=== PATIENT | female | born 1960 | race African-American/Black ===

== ENCOUNTER 2016-11-27 02:12 | Inpatient (IN) | payer OTHER, MEDICAID ==
[~2016-11-27] VITALS: Ht 154.9 cm; Wt 112.0 kg
[~2016-11-27 02:12] MED LIST: DILT360C39 PO; HYDR-523 PO; Isosorbide Mononitrate PO; LIP40 PO; LOSA100T3 PO; OMEP20TA15 PO; [UNRECOGNIZED DRUG - CODE] PO
[2016-11-27] MEDS ORDERED: ONDANSETRON HCL 4MG/2ML VIAL IV STA (03:50)
[2016-11-27] MEDS ORDERED: MORPHINE SULFATE 4 MG/ML CPJ (NOT FOR IM USE) IV STA (03:50)
[2016-11-27 04:10] LABS: BASOPHILS % 0.7 % (0.0-2.0); EOSINOPHILS % 0.9 % (0.0-5.0); HEMATOCRIT. 31.3 % (36.0-48.0); HEMOGLOBIN. 9.7 g/dL (12.0-16.0); LYMPHOCYTES % 18.1 % (20.0-50.0); MEAN CORPUSCULAR HEMOGLOBIN 21.2 pg (28.0-32.0); MEAN CORPUSCULAR VOLUME 68.1 fL (81.0-99.0); MEAN PLATELET VOLUME 9.6 fl (7.4-10.4); MONOCYTES % 11.2 % (2.0-8.0); NEUTROPHILS % 69.1 % (40.0-76.0); PLATELET 207 x1000/uL (130-400); RED CELL DISTRIBUTION WIDTH 16.8 % (11.6-14.6)
[2016-11-27 04:15] LABS: INR 1.1; PARTIAL THROMBOPLASTIN TIME 27.1 sec (24.0-34.0)
[2016-11-27 04:19] LABS: CARBON DIOXIDE 24 mEq/L (21-32); CHLORIDE 112 mEq/L (98-107)
[2016-11-27] MEDS ORDERED: FUROSEMIDE 40MG/4ML VIAL IV STA (05:06)
[2016-11-27] MEDS ORDERED: ASPIRIN 81MG TABLET PO STA (05:06)
[2016-11-27] MEDS ORDERED: NITROGLYCERIN OINT 1GM/INCH UDPKT TD STA (05:06)
[2016-11-27 05:41] LABS: TROPONIN I 0.02 ng/mL (0.00-0.04)
[2016-11-27] MEDS ORDERED: ACETAMINOPHEN 325MG TABLET PO PRN (07:15)
[2016-11-27] MEDS ORDERED: DIPHENHYDRAMINE 50MG/ML VIAL IV PRN (07:15)
[2016-11-27] MEDS ORDERED: IPRATROPIUM/ALBUTEROL 0.5-3(2.5)MG/3ML NEB INH PRN (07:15)
[2016-11-27] MEDS ORDERED: DOCUSATE SODIUM 100MG CAPSULE PO PRN (07:15)
[2016-11-27] MEDS ORDERED: LORAZEPAM 0.5MG TABLET PO PRN (07:15)
[2016-11-27] MEDS ORDERED: NA PHOS,M-B/NA PHOS,DI-BA ENEMA 118ML PR PRN (07:15)
[2016-11-27] MEDS ORDERED: GUAIFENESIN 200MG/10ML SUGAR FREE UDC PO PRN (07:15)
[2016-11-27] MEDS ORDERED: ONDANSETRON HCL 4MG/2ML VIAL IV PRN (07:15)
[2016-11-27] MEDS ORDERED: MAGNESIUM/ALUMINUM HYDROXIDE/SIMETHICONE 30ML UDC PO PRN (07:15)
[2016-11-27] MEDS ORDERED: SODIUM CHLORIDE 0.45% 1,000 ML IV SCH (09:45)
[2016-11-27] MEDS: FUROSEMIDE 40MG/4ML VIAL IV SCH (13:56)
[2016-11-27] MEDS: SODIUM CHLORIDE 0.9% INJ 3ML FLUSH IVF SCH ×2 (13:57→21:12)
[2016-11-27] MEDS: CEFTRIAXONE 1 G PREMIX 50 ML IV SCH (13:57)
[2016-11-27] MEDS: HYDROCODONE/ACETAMINOPHEN 5/325MG TABLET PO PRN ×2 (16:04→21:11)
[2016-11-27 16:16] LABS: HDL CHOLESTEROL 48 mg/dL (40-59); LDL CHOLESTEROL 94 mg/dL (5-100); TROPONIN I < 0.02 ng/mL (0.00-0.04)
[2016-11-27 16:20] LABS: CREATINE KINASE 2509 IU/L (26-192)
[2016-11-27] MEDS: CLONIDINE 0.1MG TABLET PO PRN (16:52)
[2016-11-27] MEDS: CLOPIDOGREL 75MG TABLET PO SCH (21:10)
[2016-11-27 21:17] LABS: T4 FREE 1.25 ng/dL (0.76-1.46)
[2016-11-28 00:26] LABS: CREATINE KINASE MB FRACTION 2.6 ng/mL (0.5-3.6); TROPONIN I < 0.02 ng/mL (0.00-0.04)
[2016-11-28 00:34] LABS: CREATINE KINASE 1909 IU/L (26-192)
[2016-11-28] MEDS: HYDROCODONE/ACETAMINOPHEN 5/325MG TABLET PO PRN ×4 (01:12→20:42)
[2016-11-28] MEDS: CLONIDINE 0.1MG TABLET PO PRN (04:45)
[2016-11-28] MEDS: SODIUM CHLORIDE 0.9% INJ 3ML FLUSH IVF SCH ×3 (05:23→21:44)
[2016-11-28 07:11] LABS: BASOPHILS % 0.6 % (0.0-2.0); EOSINOPHILS % 1.2 % (0.0-5.0); HEMATOCRIT. 30.6 % (36.0-48.0); HEMOGLOBIN. 9.7 g/dL (12.0-16.0); LYMPHOCYTES % 20.7 % (20.0-50.0); MEAN CORPUSCULAR HEMOGLOBIN 21.7 pg (28.0-32.0); MEAN CORPUSCULAR VOLUME 68.3 fL (81.0-99.0); MONOCYTES % 10.2 % (2.0-8.0); NEUTROPHILS % 67.3 % (40.0-76.0); PLATELET 199 x1000/uL (130-400); RED BLOOD CELL COUNT 4.47 mill/uL (4.2-5.4); RED CELL DISTRIBUTION WIDTH 16.8 % (11.6-14.6)
[2016-11-28] MEDS ORDERED: DILTIAZEM HCL 360MG CAPSULE SA 24HR PO SCH (07:30)
[2016-11-28] MEDS ORDERED: DEXTROSE 50% WATER 50ML SYRINGE IV PRN (07:30)
[2016-11-28 07:34] LABS: CARBON DIOXIDE 24 mEq/L (21-32); CHLORIDE 106 mEq/L (98-107); CREATINE KINASE MB FRACTION 2.5 ng/mL (0.5-3.6); HDL CHOLESTEROL 43 mg/dL (40-59); LDL CHOLESTEROL 93 mg/dL (5-100); PHOSPHORUS 3.3 mg/dL (2.5-4.9)
[2016-11-28] MEDS: BLOOD SUGAR DIAGNOSTIC STRIP TEST SCH ×4 (08:08→21:46)
[2016-11-28] MEDS: INSULIN LISPRO 100 UNITS/ML SUBCUT SCH ×4 (08:09→21:46)
[2016-11-28] MEDS: CLOPIDOGREL 75MG TABLET PO SCH (08:45)
[2016-11-28] MEDS: LOSARTAN POTASSIUM 100 MG TABLET PO SCH (08:45)
[2016-11-28] MEDS: ASPIRIN 81MG TABLET PO SCH (08:47)
[2016-11-28] MEDS: FUROSEMIDE 40MG/4ML VIAL IV SCH (08:47)
[2016-11-28] MEDS: HYDRALAZINE HCL 50MG TABLET PO SCH ×2 (08:57→21:43)
[2016-11-28] MEDS: NIFEDIPINE XL 60MG TAB PO SCH ×2 (10:32→21:00)
[2016-11-28] MEDS: LABETALOL HCL 300MG TABLET PO SCH ×3 (10:32→22:51)
[2016-11-28] MEDS: CEFTRIAXONE 1 G PREMIX 50 ML IV SCH (10:35)
[2016-11-28] MEDS ORDERED: NPH,100V11 SQ ×2 (13:18→13:19)
[2016-11-28] MEDS ORDERED: INSU100V28 IJ ×2 (13:18→13:19)
[2016-11-28] MEDS ORDERED: BRIM15DR2 RIGHTEYE (16:41)
[2016-11-28] MEDS ORDERED: DORZ10DR9 EACHEYE (16:42)
[2016-11-28] MEDS ORDERED: ASOU RIGHTEYE (16:43)
[2016-11-28] MEDS ORDERED: LATA2.5D2 EACHEYE (16:47)
[2016-11-28] MEDS ORDERED: VIGAMX RIGHTEYE (16:47)
[2016-11-28] MEDS ORDERED: MEDICATION NOT ON FORMULARY EA (Brimonidine Tartrate (Alphagan P) 1 DROP) RIGHTEYE PRN (17:30)
[2016-11-28] MEDS ORDERED: ATRO10DR RIGHTEYE (17:35)
[2016-11-28] MEDS ORDERED: BRIMONIDINE 0.2% OPHTH DROPS 5ML RIGHTEYE PRN (18:00)
[2016-11-28] MEDS ORDERED: MEDICATION NOT ON FORMULARY EA (Moxifloxacin Hcl (Vigamox) 1 DROP) RIGHTEYE SCH (21:00)
[2016-11-28] MEDS ORDERED: INSULIN NPH (HUMULIN-N) 100 UNITS/ML 3ML VIAL SUBCUT SCH (21:00)
[2016-11-28] MEDS ORDERED: INSULIN REGULAR (HUMULIN R) 300UNITS/3ML SUBCUT SCH (21:00)
[2016-11-28] MEDS ORDERED: ATORVASTATIN CALCIUM 40MG TABLET PO SCH (21:00)
[2016-11-28] MEDS: MOXIFLOXACIN 0.5% RIGHTEYE SCH (21:44)
[2016-11-29] MEDS: HYDROCODONE/ACETAMINOPHEN 5/325MG TABLET PO PRN (02:44)
[2016-11-29] MEDS: LABETALOL HCL 300MG TABLET PO SCH (06:00)
[2016-11-29] MEDS: BLOOD SUGAR DIAGNOSTIC STRIP TEST SCH ×2 (06:02→11:49)
[2016-11-29] MEDS: SODIUM CHLORIDE 0.9% INJ 3ML FLUSH IVF SCH (06:10)
[2016-11-29] MEDS: INSULIN LISPRO 100 UNITS/ML SUBCUT SCH ×2 (06:23→12:34)
[2016-11-29 06:30] LABS: PHOSPHORUS 3.7 mg/dL (2.5-4.9)
[2016-11-29 06:40] LABS: BASOPHILS % 0.3 % (0.0-2.0); EOSINOPHILS % 0.9 % (0.0-5.0); HEMATOCRIT. 29.9 % (36.0-48.0); HEMOGLOBIN. 9.4 g/dL (12.0-16.0); LYMPHOCYTES % 20.2 % (20.0-50.0); MEAN CORPUSCULAR HEMOGLOBIN 21.5 pg (28.0-32.0); MEAN CORPUSCULAR VOLUME 68.1 fL (81.0-99.0); MEAN PLATELET VOLUME 10.1 fl (7.4-10.4); MONOCYTES % 9.4 % (2.0-8.0); NEUTROPHILS % 69.2 % (40.0-76.0); PLATELET 198 x1000/uL (130-400); RED BLOOD CELL COUNT 4.39 mill/uL (4.2-5.4); RED CELL DISTRIBUTION WIDTH 16.4 % (11.6-14.6)
[2016-11-29] MEDS ORDERED: INSULIN NPH (HUMULIN-N) 100 UNITS/ML 3ML VIAL SUBCUT SCH ×2 (06:45→17:00)
[2016-11-29] MEDS ORDERED: INSULIN REGULAR (HUMULIN R) 300UNITS/3ML SUBCUT SCH ×2 (06:45→17:00)
[2016-11-29 08:08] LABS: PLATELET ESTIMATE NORMAL
[2016-11-29] MEDS ORDERED: SODIUM CHLORIDE 0.9% 1,000 ML IV SCH (08:30)
[2016-11-29] MEDS ORDERED: DORZOLAM/TIMOLOL 2.23/0.68% OPHTH DROPS 10ML EACHEYE SCH (09:00)
[2016-11-29] MEDS: CLOPIDOGREL 75MG TABLET PO SCH (09:00)
[2016-11-29] MEDS ORDERED: NACL 0.9% RIGHTEYE SCH (09:00)
[2016-11-29] MEDS: ASPIRIN 81MG TABLET PO SCH (09:00)
[2016-11-29] MEDS ORDERED: [UNRECOGNIZED DRUG - OTHER] RIGHTEYE SCH (09:00)
[2016-11-29] MEDS ORDERED: ATROPINE SULFATE RIGHTEYE SCH (09:00)
[2016-11-29] MEDS ORDERED: ATROPINE SULFATE 1% OPHTH 2ML RIGHTEYE SCH (09:00)
[2016-11-29] MEDS ORDERED: LATANOPROST 0.005% OPHTH DROPS 2.5ML EACHEYE SCH (09:00)
[2016-11-29] MEDS: MOXIFLOXACIN 0.5% RIGHTEYE SCH (09:12)
[2016-11-29] MEDS: HYDRALAZINE HCL 50MG TABLET PO SCH (09:16)
[2016-11-29] MEDS: LOSARTAN POTASSIUM 100 MG TABLET PO SCH (09:16)
[2016-11-29] MEDS: NIFEDIPINE XL 60MG TAB PO SCH (09:16)
[2016-11-29] MEDS ORDERED: INSULIN NPH (HUMULIN-N) 100 UNITS/ML 3ML VIAL SUBCUT NR (09:30)
[2016-11-29 13:35] VITALS: BP 128/72
== END 2016-11-29 14:19 | disposition home or self-care (01) | DRG 871 ==
LOC: ER 02:18 → 5WST 06:03 → EDBEDREQ 06:11 → ENRESERV 07:05
PROVIDERS: ADMIT Internal Medicine; ATTEND Family Medicine
DX: A41.9 Sepsis, unspecified organism (principal); E43 Unspecified severe protein-calorie malnutrition; I50.31 Acute diastolic (congestive) heart failure; L03.90 Cellulitis, unspecified; I13.0 Hypertensive heart and chronic kidney disease with heart failure and stage 1 through stage 4 chronic kidney disease, or unspecified chronic kidney disease; N17.9 Acute kidney failure, unspecified; Z68.42 Body mass index [BMI] 45.0-49.9, adult; E11.22 Type 2 diabetes mellitus with diabetic chronic kidney disease; E11.51 Type 2 diabetes mellitus with diabetic peripheral angiopathy without gangrene; E11.40 Type 2 diabetes mellitus with diabetic neuropathy, unspecified; E78.00 Pure hypercholesterolemia, unspecified; E78.5 Hyperlipidemia, unspecified; N18.3 Chronic kidney disease, stage 3 (moderate); I25.10 Atherosclerotic heart disease of native coronary artery without angina pectoris; D63.8 Anemia in other chronic diseases classified elsewhere; E66.9 Obesity, unspecified; J44.9 Chronic obstructive pulmonary disease, unspecified; Z86.718 Personal history of other venous thrombosis and embolism; Z89.611 Acquired absence of right leg above knee; Z95.820 Peripheral vascular angioplasty status with implants and grafts
CPT/HCPCS: 36415; 71010; 76770; 80048; 80053; 80061; 82550; 82553; 82962; 83036; 83735; 83880; 84100; 84439; 84443; 84484; 85025; 85379; 85610; 85730; 87040; 93005; 93306; 93923; 93970; 96374; 96375; 99285; J0696; J1815; J1940; J2270; J2405; J7030

== ENCOUNTER 2017-02-03 15:01 | Emergency (ER) | payer OTHER, MEDICAID ==
[~2017-02-03] VITALS: Ht 165.1 cm; Wt 94.0 kg
[~2017-02-03 15:01] MED LIST changes: +ATRO10DR RIGHTEYE; +BRIM15DR2 RIGHTEYE; +DORZ10DR9 EACHEYE; +INSU100V28 IJ; +LATA2.5D2 EACHEYE; +NPH,100V11 SQ; +VIGAMX RIGHTEYE
[2017-02-03 15:44] LABS: BASOPHILS % 0.9 % (0.0-2.0); EOSINOPHILS % 1.3 % (0.0-5.0); HEMATOCRIT. 32.9 % (36.0-48.0); HEMOGLOBIN. 10.4 g/dL (12.0-16.0); LYMPHOCYTES % 16.8 % (20.0-50.0); MEAN CORPUSCULAR HEMOGLOBIN 21.7 pg (28.0-32.0); MEAN CORPUSCULAR VOLUME 68.7 fL (81.0-99.0); MEAN PLATELET VOLUME 9.7 fl (7.4-10.4); MONOCYTES % 9.1 % (2.0-8.0); NEUTROPHILS % 71.9 % (40.0-76.0); PLATELET 173 x1000/uL (130-400); RED BLOOD CELL COUNT 4.79 mill/uL (4.2-5.4); RED CELL DISTRIBUTION WIDTH 16.4 % (11.6-14.6)
[2017-02-03 16:06] LABS: CARBON DIOXIDE 24 mEq/L (21-32); CHLORIDE 109 mEq/L (98-107); ETHANOL BLOOD < 10 mg/dL; TROPONIN I < 0.02 ng/mL (0.00-0.04)
[2017-02-03 17:15] LABS: CLARITY URINE CLEAR (CLEAR); COLOR URINE YELLOW (YELLOW); GLUCOSE URINE NEGATIVE (NEGATIVE); KETONES URINE NEGATIVE (NEGATIVE); LEUKOCYTE ESTERASE URINE NEGATIVE (NEGATIVE); NITRITE URINE NEGATIVE (NEGATIVE); OCCULT BLOOD URINE TRACE (NEGATIVE); PROTEIN URINE 3+ (NEGATIVE); SPECIFIC GRAVITY URINE 1.014 (1.005-1.030); UROBILINOGEN URINE 0.2 E.U./dL (0.2-1.0)
[2017-02-03 17:27] LABS: PLATELET ESTIMATE NORMAL
[2017-02-03 17:30] LABS: *AMPHETAMINES SCREEN URINE NEGATIVE (NEGATIVE); *BARBITURATES SCREEN URINE NEGATIVE (NEGATIVE); *BENZODIAZEPINES SCREEN URINE NEGATIVE (NEGATIVE); *COCAINE SCREEN URINE NEGATIVE (NEGATIVE); CANNABINOID URINE SCREEN NEGATIVE (NEGATIVE); METHADONE URINE SCREEN NEGATIVE (NEGATIVE); OPIATES URINE SCREEN PRESUMTIVE POSITIVE (NEGATIVE); PHENCYCLIDINE URINE SCREEN NEGATIVE (NEGATIVE)
[2017-02-03 19:09] VITALS: BP 156/67
== END 2017-02-03 19:14 | disposition home or self-care (01) ==
LOC: ER 15:09
DX: E11.649 Type 2 diabetes mellitus with hypoglycemia without coma (principal); Z79.4 Long term (current) use of insulin; I11.9 Hypertensive heart disease without heart failure; E78.00 Pure hypercholesterolemia, unspecified; Z89.611 Acquired absence of right leg above knee
CPT/HCPCS: 36415; 80053; 80305; 81001; 82962; 84484; 85025; 93005; 99285; G0482

== ENCOUNTER 2017-06-22 08:06 | Inpatient (IN) | payer OTHER, MEDICAID ==
[~2017-06-22] VITALS: Ht 154.9 cm; Wt 104.3 kg
[2017-06-22 09:05] LABS: BASOPHILS % 0.7 % (0.0-2.0); EOSINOPHILS % 0.9 % (0.0-5.0); HEMATOCRIT. 29.5 % (36.0-48.0); HEMOGLOBIN. 9.2 g/dL (12.0-16.0); LYMPHOCYTES % 13.3 % (20.0-50.0); MEAN CORPUSCULAR HEMOGLOBIN 21.3 pg (28.0-32.0); MEAN CORPUSCULAR VOLUME 68.2 fL (81.0-99.0); MEAN PLATELET VOLUME 9.7 fl (7.4-10.4); MONOCYTES % 8.8 % (2.0-8.0); NEUTROPHILS % 76.3 % (40.0-76.0); PLATELET 285 x1000/uL (130-400); RED BLOOD CELL COUNT 4.32 mill/uL (4.2-5.4); RED CELL DISTRIBUTION WIDTH 15.9 % (11.6-14.6)
[2017-06-22 09:10] LABS: INR 1.1; PROTHROMBIN TIME 11.4 sec (9.4-11.6)
[2017-06-22 09:25] LABS: CARBON DIOXIDE 23 mEq/L (21-32); CHLORIDE 104 mEq/L (98-107)
[2017-06-22 09:45] LABS: TROPONIN I < 0.02 ng/mL (0.00-0.04)
[2017-06-22] MEDS ORDERED: FUROSEMIDE 20MG/2ML VIAL IVP ONE (10:15)
[2017-06-22] MEDS ORDERED: ENALAPRIL 2.5MG/2ML VIAL 2ML IV ONE (10:15)
[2017-06-22 10:58] LABS: PLATELET ESTIMATE NORMAL
[2017-06-22] MEDS ORDERED: ONDANSETRON HCL 4MG/2ML VIAL IV ONE (12:15)
[2017-06-22 17:24] VITALS: BP 173/88
[2017-06-22] MEDS ORDERED: DEXTROSE 50% WATER 50ML SYRINGE IV PRN (19:00)
[2017-06-22] MEDS ORDERED: FUROSEMIDE 100MG/10ML VIAL IVP NR (19:34)
[2017-06-22 20:00] VITALS: BP 186/55
[2017-06-22] MEDS: ATORVASTATIN CALCIUM 40MG TABLET PO SCH (20:59)
[2017-06-22] MEDS ORDERED: MAGNESIUM/ALUMINUM HYDROXIDE/SIMETHICONE 30ML UDC PO PRN (21:00)
[2017-06-22] MEDS ORDERED: ONDANSETRON HCL 4MG/2ML VIAL IV PRN (21:00)
[2017-06-22] MEDS ORDERED: IPRATROPIUM/ALBUTEROL 0.5-3(2.5)MG/3ML NEB INH PRN (21:00)
[2017-06-22] MEDS ORDERED: GUAIFENESIN 200MG/10ML SUGAR FREE UDC PO PRN (21:00)
[2017-06-22] MEDS: HYDROCODONE/ACETAMINOPHEN 5/325MG TABLET PO PRN (21:00)
[2017-06-22] MEDS ORDERED: ACETAMINOPHEN 325MG TABLET PO PRN (21:00)
[2017-06-22] MEDS ORDERED: DIPHENHYDRAMINE 50MG/ML VIAL IV PRN (21:00)
[2017-06-22] MEDS ORDERED: HYDRALAZINE 20MG/ML VIAL IV PRN (21:00)
[2017-06-22] MEDS: INSULIN LISPRO 100 UNITS/ML SUBCUT SCH (21:01)
[2017-06-22] MEDS: BLOOD SUGAR DIAGNOSTIC STRIP TEST SCH (21:01)
[2017-06-22] MEDS: CLONIDINE 0.2MG TABLET PO PRN (21:23)
[2017-06-22] MEDS: SODIUM CHLORIDE 0.9% INJ 3ML FLUSH IVF SCH (21:24)
[2017-06-22] MEDS: ENOXAPARIN 40MG/0.4ML SYR SUBCUT SCH (23:20)
[2017-06-22] MEDS: LATANOPROST 0.005% OPHTH DROPS 2.5ML EACHEYE SCH (23:20)
[2017-06-22] MEDS: LABETALOL HCL 300MG TABLET PO SCH (23:21)
[2017-06-22 23:35] VITALS: BP 147/41
[2017-06-23 04:00] VITALS: BP 150/43
[2017-06-23 06:17] LABS: BASOPHILS % 0.8 % (0.0-2.0); EOSINOPHILS % 1.5 % (0.0-5.0); HEMATOCRIT. 27.4 % (36.0-48.0); HEMOGLOBIN. 8.4 g/dL (12.0-16.0); LYMPHOCYTES % 21.4 % (20.0-50.0); MEAN CORPUSCULAR HEMOGLOBIN 20.9 pg (28.0-32.0); MEAN CORPUSCULAR VOLUME 68.5 fL (81.0-99.0); MEAN PLATELET VOLUME 9.4 fl (7.4-10.4); MONOCYTES % 12.9 % (2.0-8.0); NEUTROPHILS % 63.4 % (40.0-76.0); PLATELET 254 x1000/uL (130-400); RED CELL DISTRIBUTION WIDTH 15.7 % (11.6-14.6)
[2017-06-23] MEDS: BLOOD SUGAR DIAGNOSTIC STRIP TEST SCH ×4 (06:25→21:00)
[2017-06-23] MEDS: OMEPRAZOLE 20MG CAPSULE EXTENDED RELEASE PO SCH (06:32)
[2017-06-23] MEDS: CLONIDINE 0.2MG TABLET PO PRN (06:33)
[2017-06-23] MEDS: SODIUM CHLORIDE 0.9% INJ 3ML FLUSH IVF SCH ×3 (06:33→21:20)
[2017-06-23] MEDS: LABETALOL HCL 300MG TABLET PO SCH ×3 (06:33→21:03)
[2017-06-23] MEDS: INSULIN LISPRO 100 UNITS/ML SUBCUT SCH ×4 (06:36→21:18)
[2017-06-23 06:58] LABS: CARBON DIOXIDE 25 mEq/L (21-32); CHLORIDE 104 mEq/L (98-107); TROPONIN I < 0.02 ng/mL (0.00-0.04)
[2017-06-23 08:00] VITALS: BP 150/100
[2017-06-23] MEDS ORDERED: DORZOLAM/TIMOLOL 2.23/0.68% OPHTH DROPS 10ML EACHEYE SCH ×2 (09:00)
[2017-06-23] MEDS: DILTIAZEM HCL 360MG CAPSULE SA 24HR PO SCH (09:30)
[2017-06-23] MEDS: LOSARTAN POTASSIUM 100 MG TABLET PO SCH (09:30)
[2017-06-23] MEDS: INSULIN NPH (HUMULIN-N) 100 UNITS/ML 3ML VIAL SUBCUT SCH ×2 (09:32→17:32)
[2017-06-23 10:23] LABS: BG BASE EXCESS -3.1 mmol/L (-2.0-2.0); BG CARBOXYHEMOGLOBIN 0.8 % (0.5-1.5); BG DEOXYHEMOGLOBIN 3.4 % (0.0-5.0); BG FRACTION INSPIRED OXYGEN 21; BG HCO3 ACT 21.5 mmol/L (22.0-26.0); BG METHEMOGLOBIN 0.3 % (0.0-1.5); BG OXYGEN SATURATION 96.6 % (92.0-98.5); BG OXYHEMOGLOBIN 95.5 % (94.0-97.0); BG PCO2 36.4 mmHg (35.0-45.0); BG PH 7.389 (7.350-7.450); BG PO2 93.7 mmHg (75.0-100.0); BG SAMPLE SITE RIGHT RADIAL; BG TOTAL HEMOGLOBIN 8.6 g/dL (12.0-18.0); BG VENT MODE ROOM AIR
[2017-06-23 12:00] VITALS: BP 176/48
[2017-06-23 16:00] VITALS: BP 117/74
[2017-06-23 16:15] LABS: BASOPHILS % 0.8 % (0.0-2.0); EOSINOPHILS % 1.4 % (0.0-5.0); HEMATOCRIT. 26.4 % (36.0-48.0); HEMOGLOBIN. 8.3 g/dL (12.0-16.0); LYMPHOCYTES % 21.7 % (20.0-50.0); MEAN CORPUSCULAR HEMOGLOBIN 21.6 pg (28.0-32.0); MEAN CORPUSCULAR VOLUME 68.7 fL (81.0-99.0); MEAN PLATELET VOLUME 9.8 fl (7.4-10.4); MONOCYTES % 9.9 % (2.0-8.0); NEUTROPHILS % 66.2 % (40.0-76.0); PLATELET 250 x1000/uL (130-400); RED BLOOD CELL COUNT 3.85 mill/uL (4.2-5.4)
[2017-06-23 16:20] LABS: CHLORIDE 101 mEq/L (98-107)
[2017-06-23 16:30] LABS: CARBON DIOXIDE 25 mEq/L (21-32)
[2017-06-23 20:00] VITALS: BP 120/67
[2017-06-23] MEDS: ATORVASTATIN CALCIUM 40MG TABLET PO SCH (21:02)
[2017-06-23] MEDS: LATANOPROST 0.005% OPHTH DROPS 2.5ML EACHEYE SCH (21:04)
[2017-06-23] MEDS: ENOXAPARIN 40MG/0.4ML SYR SUBCUT SCH (21:04)
[2017-06-23] MEDS: HYDROCODONE/ACETAMINOPHEN 5/325MG TABLET PO PRN (21:05)
[2017-06-24] VITALS: BP 149/41
[2017-06-24 04:00] VITALS: BP 168/43
[2017-06-24] MEDS: LABETALOL HCL 300MG TABLET PO SCH ×3 (05:54→21:36)
[2017-06-24] MEDS: SODIUM CHLORIDE 0.9% INJ 3ML FLUSH IVF SCH ×3 (05:55→21:36)
[2017-06-24] MEDS: BLOOD SUGAR DIAGNOSTIC STRIP TEST SCH ×4 (06:04→20:39)
[2017-06-24] MEDS: INSULIN LISPRO 100 UNITS/ML SUBCUT SCH ×4 (06:04→21:02)
[2017-06-24] MEDS: OMEPRAZOLE 20MG CAPSULE EXTENDED RELEASE PO SCH (06:11)
[2017-06-24 07:20] LABS: BASOPHILS % 0.5 % (0.0-2.0); EOSINOPHILS % 2.1 % (0.0-5.0); HEMOGLOBIN. 8.8 g/dL (12.0-16.0); LYMPHOCYTES % 27.6 % (20.0-50.0); MEAN CORPUSCULAR HEMOGLOBIN 21.5 pg (28.0-32.0); MEAN PLATELET VOLUME 9.7 fl (7.4-10.4); MONOCYTES % 12.9 % (2.0-8.0); NEUTROPHILS % 56.9 % (40.0-76.0); PLATELET 264 x1000/uL (130-400); RED BLOOD CELL COUNT 4.11 mill/uL (4.2-5.4); RED CELL DISTRIBUTION WIDTH 15.9 % (11.6-14.6)
[2017-06-24 08:00] VITALS: BP 153/44
[2017-06-24 08:07] LABS: CHLORIDE 103 mEq/L (98-107)
[2017-06-24 09:23] LABS: CARBON DIOXIDE 23 mEq/L (21-32); HDL CHOLESTEROL 33 mg/dL (40-59); LDL CHOLESTEROL 82 mg/dL (5-100); PHOSPHORUS 4.3 mg/dL (2.5-4.9)
[2017-06-24] MEDS: DILTIAZEM HCL 360MG CAPSULE SA 24HR PO SCH (09:41)
[2017-06-24] MEDS: LOSARTAN POTASSIUM 100 MG TABLET PO SCH (09:41)
[2017-06-24] MEDS: INSULIN NPH (HUMULIN-N) 100 UNITS/ML 3ML VIAL SUBCUT SCH ×2 (09:46→18:41)
[2017-06-24 12:00] VITALS: BP 100/50
[2017-06-24] MEDS ORDERED: POTASSIUM CHLORIDE INJ 40 MEQ in DEXT 5% WATER 500 ML IV SCH (14:00)
[2017-06-24 16:00] VITALS: BP 148/49
[2017-06-24] MEDS: POTASSIUM CHLORIDE 20MEQ/PACKET PO SCH (18:23)
[2017-06-24] MEDS: FUROSEMIDE 80MG TABLET PO SCH (18:45)
[2017-06-24 20:00] VITALS: BP 151/52
[2017-06-24] MEDS: ENOXAPARIN 40MG/0.4ML SYR SUBCUT SCH (21:03)
[2017-06-24] MEDS: ATORVASTATIN CALCIUM 40MG TABLET PO SCH (21:03)
[2017-06-24] MEDS: LATANOPROST 0.005% OPHTH DROPS 2.5ML EACHEYE SCH (21:03)
[2017-06-24] MEDS: HYDROCODONE/ACETAMINOPHEN 5/325MG TABLET PO PRN (22:16)
[2017-06-25] VITALS: BP 122/52
[2017-06-25 04:00] VITALS: BP 106/55
[2017-06-25] MEDS: SODIUM CHLORIDE 0.9% INJ 3ML FLUSH IVF SCH ×3 (05:38→21:18)
[2017-06-25] MEDS: FUROSEMIDE 80MG TABLET PO SCH ×2 (05:38→17:51)
[2017-06-25] MEDS: LABETALOL HCL 300MG TABLET PO SCH ×3 (05:41→21:17)
[2017-06-25] MEDS: BLOOD SUGAR DIAGNOSTIC STRIP TEST SCH ×4 (06:31→20:58)
[2017-06-25] MEDS: INSULIN LISPRO 100 UNITS/ML SUBCUT SCH ×4 (06:57→21:19)
[2017-06-25] MEDS: OMEPRAZOLE 20MG CAPSULE EXTENDED RELEASE PO SCH (07:17)
[2017-06-25 07:20] LABS: BASOPHILS % 0.8 % (0.0-2.0); EOSINOPHILS % 1.6 % (0.0-5.0); HEMATOCRIT. 27.4 % (36.0-48.0); HEMOGLOBIN. 8.7 g/dL (12.0-16.0); LYMPHOCYTES % 27.2 % (20.0-50.0); MEAN CORPUSCULAR HEMOGLOBIN 21.6 pg (28.0-32.0); MEAN CORPUSCULAR VOLUME 67.9 fL (81.0-99.0); MONOCYTES % 14.1 % (2.0-8.0); NEUTROPHILS % 56.3 % (40.0-76.0); PLATELET 263 x1000/uL (130-400); RED BLOOD CELL COUNT 4.04 mill/uL (4.2-5.4); RED CELL DISTRIBUTION WIDTH 15.9 % (11.6-14.6)
[2017-06-25 08:00] VITALS: BP 163/65
[2017-06-25] MEDS: DILTIAZEM HCL 360MG CAPSULE SA 24HR PO SCH (08:53)
[2017-06-25] MEDS: LOSARTAN POTASSIUM 100 MG TABLET PO SCH (08:54)
[2017-06-25] MEDS: POTASSIUM CHLORIDE 20MEQ/PACKET PO SCH ×2 (08:54→17:35)
[2017-06-25 09:00] LABS: CHLORIDE 103 mEq/L (98-107)
[2017-06-25] MEDS: INSULIN NPH (HUMULIN-N) 100 UNITS/ML 3ML VIAL SUBCUT SCH ×2 (09:04→17:47)
[2017-06-25 09:18] LABS: CARBON DIOXIDE 26 mEq/L (21-32); PHOSPHORUS 4.1 mg/dL (2.5-4.9)
[2017-06-25 12:00] VITALS: BP 156/51
[2017-06-25] MEDS ORDERED: METOLAZONE 2.5MG TABLET PO NR (15:30)
[2017-06-25 16:00] VITALS: BP 164/57
[2017-06-25 20:00] VITALS: BP 139/50
[2017-06-25] MEDS: ENOXAPARIN 40MG/0.4ML SYR SUBCUT SCH (20:59)
[2017-06-25] MEDS: ATORVASTATIN CALCIUM 40MG TABLET PO SCH (20:59)
[2017-06-25] MEDS: HYDROCODONE/ACETAMINOPHEN 5/325MG TABLET PO PRN (21:15)
[2017-06-25] MEDS: LATANOPROST 0.005% OPHTH DROPS 2.5ML EACHEYE SCH (21:20)
[2017-06-25] MEDS: METOLAZONE 5MG TABLET PO SCH (23:03)
[2017-06-26] VITALS (12 sets, daily range): BP systolic 134–160; BP diastolic 36–60
[2017-06-26] MEDS: FUROSEMIDE 80MG TABLET PO SCH ×2 (05:34→18:18)
[2017-06-26] MEDS: LABETALOL HCL 300MG TABLET PO SCH ×3 (05:35→20:52)
[2017-06-26] MEDS: SODIUM CHLORIDE 0.9% INJ 3ML FLUSH IVF SCH ×2 (05:35→14:00)
[2017-06-26] MEDS: BLOOD SUGAR DIAGNOSTIC STRIP TEST SCH ×4 (06:39→21:00)
[2017-06-26] MEDS: INSULIN LISPRO 100 UNITS/ML SUBCUT SCH ×4 (06:49→20:53)
[2017-06-26] MEDS: OMEPRAZOLE 20MG CAPSULE EXTENDED RELEASE PO SCH (06:52)
[2017-06-26 07:32] LABS: BASOPHILS % 0.8 % (0.0-2.0); EOSINOPHILS % 1.5 % (0.0-5.0); HEMATOCRIT. 27.1 % (36.0-48.0); HEMOGLOBIN. 8.6 g/dL (12.0-16.0); LYMPHOCYTES % 25.8 % (20.0-50.0); MEAN CORPUSCULAR HEMOGLOBIN 21.5 pg (28.0-32.0); MEAN CORPUSCULAR VOLUME 67.9 fL (81.0-99.0); MEAN PLATELET VOLUME 9.8 fl (7.4-10.4); MONOCYTES % 13.3 % (2.0-8.0); NEUTROPHILS % 58.6 % (40.0-76.0); PLATELET 254 x1000/uL (130-400); RED BLOOD CELL COUNT 3.99 mill/uL (4.2-5.4); RED CELL DISTRIBUTION WIDTH 15.9 % (11.6-14.6)
[2017-06-26] MEDS ORDERED: METOLAZONE 2.5MG TABLET PO SCH (09:00)
[2017-06-26] MEDS: POTASSIUM CHLORIDE 20MEQ/PACKET PO SCH ×2 (09:16→18:13)
[2017-06-26] MEDS: DILTIAZEM HCL 360MG CAPSULE SA 24HR PO SCH (09:16)
[2017-06-26] MEDS: METOLAZONE 5MG TABLET PO SCH ×2 (09:17→20:52)
[2017-06-26] MEDS: LOSARTAN POTASSIUM 100 MG TABLET PO SCH (09:17)
[2017-06-26] MEDS: INSULIN NPH (HUMULIN-N) 100 UNITS/ML 3ML VIAL SUBCUT SCH ×2 (09:19→18:15)
[2017-06-26 09:20] LABS: PHOSPHORUS 4.1 mg/dL (2.5-4.9)
[2017-06-26] MEDS ORDERED: LIDOCAINE HCL 1% 20ML VIAL (Pyxis) INJ ONE (13:08)
[2017-06-26] MEDS ORDERED: SODIUM BICARBONATE 4% (2.4MEQ) 5ML VIAL IV ONE (13:08)
[2017-06-26] MEDS ORDERED: CEFAZOLIN 1000MG PREMIX 50 ML IV ONE ×2 (13:50)
[2017-06-26] MEDS ORDERED: FENTANYL CITRATE/PF 50MCG/ML 2ML VIAL ONE (13:51)
[2017-06-26] MEDS ORDERED: FENTANYL CITRATE/PF 50MCG/ML 2ML VIAL IV ONE (14:05)
[2017-06-26 14:07] LABS: HEPATITIS B SURFACE AB < 3.1 mIU/mL
[2017-06-26 14:18] LABS: HEPATITIS B SURFACE ANTIGEN NEGATIVE
[2017-06-26 14:44] LABS: HEPATITIS B CORE AB IGM NEGATIVE
[2017-06-26] MEDS: ATORVASTATIN CALCIUM 40MG TABLET PO SCH (20:51)
[2017-06-26] MEDS: ENOXAPARIN 40MG/0.4ML SYR SUBCUT SCH (20:51)
[2017-06-26] MEDS: LATANOPROST 0.005% OPHTH DROPS 2.5ML EACHEYE SCH (20:52)
[2017-06-26] MEDS: HYDROCODONE/ACETAMINOPHEN 5/325MG TABLET PO PRN (20:59)
[2017-06-27] VITALS: BP 138/52
[2017-06-27 04:00] VITALS: BP 136/51
[2017-06-27] MEDS: LABETALOL HCL 300MG TABLET PO SCH ×2 (05:46→13:00)
[2017-06-27] MEDS: BLOOD SUGAR DIAGNOSTIC STRIP TEST SCH ×2 (05:48→12:51)
[2017-06-27] MEDS: FUROSEMIDE 80MG TABLET PO SCH (05:54)
[2017-06-27] MEDS: OMEPRAZOLE 20MG CAPSULE EXTENDED RELEASE PO SCH ×2 (05:54→06:05)
[2017-06-27] MEDS: SODIUM CHLORIDE 0.9% INJ 3ML FLUSH IVF SCH ×2 (06:03→06:04)
[2017-06-27] MEDS: INSULIN LISPRO 100 UNITS/ML SUBCUT SCH ×2 (06:09→12:58)
[2017-06-27 06:38] LABS: BASOPHILS % 0.6 % (0.0-2.0); EOSINOPHILS % 1.3 % (0.0-5.0); HEMATOCRIT. 27.3 % (36.0-48.0); HEMOGLOBIN. 8.5 g/dL (12.0-16.0); LYMPHOCYTES % 19.5 % (20.0-50.0); MEAN CORPUSCULAR HEMOGLOBIN 21.3 pg (28.0-32.0); MEAN CORPUSCULAR VOLUME 68.5 fL (81.0-99.0); MEAN PLATELET VOLUME 9.8 fl (7.4-10.4); MONOCYTES % 11.6 % (2.0-8.0); PLATELET 229 x1000/uL (130-400); RED BLOOD CELL COUNT 3.98 mill/uL (4.2-5.4); RED CELL DISTRIBUTION WIDTH 16.2 % (11.6-14.6)
[2017-06-27 08:32] VITALS: BP 154/44
[2017-06-27] MEDS: INSULIN NPH (HUMULIN-N) 100 UNITS/ML 3ML VIAL SUBCUT SCH (09:00)
[2017-06-27] MEDS: LOSARTAN POTASSIUM 100 MG TABLET PO SCH (09:00)
[2017-06-27] MEDS: DILTIAZEM HCL 360MG CAPSULE SA 24HR PO SCH (09:00)
[2017-06-27] MEDS: POTASSIUM CHLORIDE 20MEQ/PACKET PO SCH (09:00)
[2017-06-27] MEDS: METOLAZONE 5MG TABLET PO SCH (09:00)
[2017-06-27 09:30] LABS: PHOSPHORUS 3.5 mg/dL (2.5-4.9)
[2017-06-27] MEDS: HYDROCODONE/ACETAMINOPHEN 5/325MG TABLET PO PRN (11:27)
[2017-06-27 12:21] VITALS: BP 132/62
[2017-06-27 16:19] VITALS: BP 126/73
== END 2017-06-27 17:40 | disposition home health service (06) | DRG 291 ==
LOC: ER 08:43 → 8WST 10:59 → EDBEDREQTM 11:02 → EDBEDREQ 11:02 → ENRESERV 15:56
PROVIDERS: ADMIT Internal Medicine; ATTEND Internal Medicine
PROC: 02HV33Z Insertion of Infusion Device into Superior Vena Cava, Percutaneous Approach (ICD-10-PCS; principal; 2017-06-26)
PROC: B5181ZA Fluoroscopy of Superior Vena Cava using Low Osmolar Contrast, Guidance (ICD-10-PCS; 2017-06-26)
PROC: B548ZZA Ultrasonography of Superior Vena Cava, Guidance (ICD-10-PCS; 2017-06-26)
DX: I13.2 Hypertensive heart and chronic kidney disease with heart failure and with stage 5 chronic kidney disease, or end stage renal disease (principal); I50.33 Acute on chronic diastolic (congestive) heart failure; E11.21 Type 2 diabetes mellitus with diabetic nephropathy; E46 Unspecified protein-calorie malnutrition; E11.319 Type 2 diabetes mellitus with unspecified diabetic retinopathy without macular edema; E11.40 Type 2 diabetes mellitus with diabetic neuropathy, unspecified; N18.6 End stage renal disease; Z68.41 Body mass index [BMI] 40.0-44.9, adult; D63.8 Anemia in other chronic diseases classified elsewhere; E66.9 Obesity, unspecified; E11.22 Type 2 diabetes mellitus with diabetic chronic kidney disease; E11.51 Type 2 diabetes mellitus with diabetic peripheral angiopathy without gangrene; E78.00 Pure hypercholesterolemia, unspecified; H40.9 Unspecified glaucoma; Z79.4 Long term (current) use of insulin; Z79.899 Other long term (current) drug therapy; Z89.611 Acquired absence of right leg above knee; Z82.49 Family history of ischemic heart disease and other diseases of the circulatory system; Z83.3 Family history of diabetes mellitus; Z87.891 Personal history of nicotine dependence; Z99.2 Dependence on renal dialysis
CPT/HCPCS: 36415; 36558; 36600; 71045; 76937; 77001; 80048; 80053; 80061; 82375; 82805; 82962; 83735; 83880; 84100; 84484; 85025; 85610; 86705; 86706; 86803; 87340; 93005; 93306; 96374; 96375; 99285; C1750; C1769; J0690; J1642; J1650; J1815; J1940; J2405; J3010; J3480; J3490; J7060

== ENCOUNTER 2020-01-11 09:31 | Emergency (ER) | payer OTHER, MEDICAID ==
[~2020-01-11] VITALS: Ht 165.1 cm; Wt 87.0 kg
[2020-01-11] MEDS ORDERED: OXYCODONE HCL/ACETAMINOPHEN 5/325MG TABLET PO ONE (10:00)
[2020-01-11 11:47] VITALS: BP 181/72
== END 2020-01-11 11:50 | disposition home or self-care (01) ==
LOC: ER 09:31
DX: R10.9 Unspecified abdominal pain (principal); M54.5 Low back pain; R07.89 Other chest pain; W05.0XXA Fall from non-moving wheelchair, initial encounter; Y93.89 Activity, other specified; Y92.89 Other specified places as the place of occurrence of the external cause; I11.0 Hypertensive heart disease with heart failure; I50.9 Heart failure, unspecified; E78.00 Pure hypercholesterolemia, unspecified; Z89.611 Acquired absence of right leg above knee; E11.9 Type 2 diabetes mellitus without complications; Z79.899 Other long term (current) drug therapy; Z79.4 Long term (current) use of insulin
CPT/HCPCS: 71101; 72100; 93005; 99284

== ENCOUNTER 2020-01-12 08:28 | Inpatient (IN) | payer OTHER, MEDICAID ==
[~2020-01-12] VITALS: Ht 157.5 cm; Wt 81.6 kg
[2020-01-12] MEDS ORDERED: MORPHINE SULFATE 4 MG/ML CPJ (NOT FOR IM USE) IV STA (09:22)
[2020-01-12 09:57] LABS: BASOPHILS % 0.7 % (0.0-2.0); EOSINOPHILS % 0.8 % (0.0-5.0); HEMATOCRIT. 42.5 % (36.0-48.0); HEMOGLOBIN. 13.2 g/dL (12.0-16.0); LYMPHOCYTES % 14.4 % (20.0-50.0); MEAN CORPUSCULAR HEMOGLOBIN 23.2 pg (28.0-32.0); MEAN CORPUSCULAR VOLUME 74.7 fL (81.0-99.0); MEAN PLATELET VOLUME 9.5 fl (7.4-10.4); NEUTROPHILS % 77.1 % (40.0-76.0); PLATELET 211 x1000/uL (130-400); RED BLOOD CELL COUNT 5.69 mill/uL (4.2-5.4); RED CELL DISTRIBUTION WIDTH 17.3 % (11.6-14.6)
[2020-01-12] MEDS ORDERED: ONDANSETRON HCL 4MG/2ML INJ IV ONE (10:00)
[2020-01-12 10:01] LABS: CHLORIDE 104 mEq/L (98-107)
[2020-01-12 10:05] LABS: PROTHROMBIN TIME 10.7 sec (9.6-11.0)
[2020-01-12] MEDS ORDERED: IOHEXOL-300 100 ML BOTTLE ONE (13:00)
[2020-01-12] MEDS ORDERED: CLONIDINE 0.1MG TABLET PO PRN (20:15)
[2020-01-12] MEDS: MORPHINE SULFATE 4 MG/ML CPJ (NOT FOR IM USE) IV PRN (20:22)
[2020-01-12] MEDS: HYDRALAZINE 20MG/ML VIAL IV PRN (21:48)
[2020-01-13] MEDS: CLONIDINE 0.2MG TABLET PO PRN (02:37)
[2020-01-13] MEDS: ONDANSETRON HCL 4MG/2ML INJ IV PRN ×2 (02:38→08:47)
[2020-01-13] MEDS: HYDRALAZINE 20MG/ML VIAL IV PRN (04:11)
[2020-01-13] MEDS: MORPHINE SULFATE 4 MG/ML CPJ (NOT FOR IM USE) IV PRN ×2 (04:11→22:27)
[2020-01-13 04:51] VITALS: BP 178/47
[2020-01-13 08:00] VITALS: BP 193/80
[2020-01-13] MEDS ORDERED: DOCUSATE SODIUM 100MG CAPSULE PO PRN (08:00)
[2020-01-13] MEDS ORDERED: HYDROCODONE/ACETAMINOPHEN 5/325MG TABLET PO PRN ×2 (08:00→16:00)
[2020-01-13] MEDS: LOSARTAN POTASSIUM 100 MG TABLET PO SCH (08:36)
[2020-01-13] MEDS: ASPIRIN 81MG EC TABLET PO SCH (08:37)
[2020-01-13] MEDS: AMLODIPINE 10MG TABLET PO SCH (08:38)
[2020-01-13] MEDS ORDERED: LABETALOL HCL 200MG TABLET PO SCH (09:00)
[2020-01-13 12:00] VITALS: BP 189/59
[2020-01-13] MEDS: BLOOD SUGAR DIAGNOSTIC STRIP TEST SCH ×3 (12:42→21:00)
[2020-01-13] MEDS ORDERED: HYDRALAZINE HCL 100MG TABLET PO NR (12:45)
[2020-01-13] MEDS ORDERED: DEXTROSE 50% WATER 50ML SYRINGE IV PRN (12:45)
[2020-01-13] MEDS ORDERED: SODIUM POLYSTYRENE SULFONATE 15 G/60 ML BOT PO SCH (13:00)
[2020-01-13] MEDS: INSULIN LISPRO 100 UNITS/ML SUBCUT SCH ×3 (13:29→22:40)
[2020-01-13] MEDS: HYDRALAZINE HCL 100MG TABLET PO SCH ×2 (14:00→22:26)
[2020-01-13] MEDS: CLONIDINE 0.1MG TABLET PO SCH ×2 (15:36→22:26)
[2020-01-13 16:00] VITALS: BP 140/52
[2020-01-13] MEDS: METOCLOPRAMIDE HCL 10MG/2ML VIAL IV SCH ×2 (17:45→22:27)
[2020-01-13 20:00] VITALS: BP 185/76
[2020-01-13] MEDS: LABETALOL HCL 300MG TABLET PO SCH (22:26)
[2020-01-14] VITALS: BP 148/70
[2020-01-14 04:00] VITALS: BP 150/76
[2020-01-14] MEDS: MORPHINE SULFATE 4 MG/ML CPJ (NOT FOR IM USE) IV PRN ×3 (04:39→20:49)
[2020-01-14] MEDS: HYDRALAZINE HCL 100MG TABLET PO SCH ×3 (04:57→21:03)
[2020-01-14] MEDS: CLONIDINE 0.1MG TABLET PO SCH ×3 (04:57→21:03)
[2020-01-14] MEDS: METOCLOPRAMIDE HCL 10MG/2ML VIAL IV SCH ×4 (04:58→23:02)
[2020-01-14] MEDS: BLOOD SUGAR DIAGNOSTIC STRIP TEST SCH ×4 (06:20→21:03)
[2020-01-14] MEDS: INSULIN LISPRO 100 UNITS/ML SUBCUT SCH ×4 (06:36→21:04)
[2020-01-14 08:00] VITALS: BP 157/55
[2020-01-14] MEDS: LABETALOL HCL 300MG TABLET PO SCH ×2 (09:00→20:49)
[2020-01-14] MEDS: LOSARTAN POTASSIUM 100 MG TABLET PO SCH (09:00)
[2020-01-14] MEDS: AMLODIPINE 10MG TABLET PO SCH (09:00)
[2020-01-14] MEDS: ASPIRIN 81MG EC TABLET PO SCH (09:08)
[2020-01-14 11:28] LABS: BASOPHILS % 0.8 % (0.0-2.0); EOSINOPHILS % 1.2 % (0.0-5.0); HEMATOCRIT. 41.8 % (36.0-48.0); LYMPHOCYTES % 16.2 % (20.0-50.0); MEAN CORPUSCULAR HEMOGLOBIN 22.8 pg (28.0-32.0); MEAN CORPUSCULAR VOLUME 73.3 fL (81.0-99.0); MONOCYTES % 11.1 % (2.0-8.0); NEUTROPHILS % 70.7 % (40.0-76.0); PLATELET 198 x1000/uL (130-400); RED CELL DISTRIBUTION WIDTH 17.3 % (11.6-14.6)
[2020-01-14 11:33] LABS: CHLORIDE 102 mEq/L (98-107)
[2020-01-14 12:00] VITALS: BP 148/43
[2020-01-14] MEDS ORDERED: LORAZEPAM 2MG/ML CPJ IV PRN (14:00)
[2020-01-14] MEDS ORDERED: LACTULOSE 20G/30ML UDC PO PRN (14:00)
[2020-01-14] MEDS ORDERED: HYDR-4001 MT (14:02)
[2020-01-14 16:00] VITALS: BP_SYST 150; BP_SYST 194; BP_DIAS 57; BP_DIAS 67
[2020-01-14 20:00] VITALS: BP 187/63
[2020-01-14] MEDS: CLONIDINE 0.2MG TABLET PO PRN (23:07)
[2020-01-14] MEDS ORDERED: ACETAMINOPHEN 325MG TABLET PO PRN (23:45)
[2020-01-15] VITALS: BP 180/55
[2020-01-15] MEDS ORDERED: CEFTRIAXONE 1,000 MG in DEXTROSE 5% WATER 50 ML IV SCH (01:00)
[2020-01-15] MEDS: HYDRALAZINE 20MG/ML VIAL IV PRN (04:53)
[2020-01-15] MEDS: HYDRALAZINE HCL 100MG TABLET PO SCH ×3 (05:00→13:21)
[2020-01-15] MEDS: CLONIDINE 0.1MG TABLET PO SCH ×3 (05:00→13:21)
[2020-01-15] MEDS: METOCLOPRAMIDE HCL 10MG/2ML VIAL IV SCH ×2 (05:00→13:22)
[2020-01-15] MEDS: BLOOD SUGAR DIAGNOSTIC STRIP TEST SCH ×2 (05:51→11:45)
[2020-01-15] MEDS: INSULIN LISPRO 100 UNITS/ML SUBCUT SCH ×2 (06:38→13:22)
[2020-01-15 06:49] LABS: BASOPHILS % 0.5 % (0.0-2.0); EOSINOPHILS % 1.2 % (0.0-5.0); HEMATOCRIT. 39.3 % (36.0-48.0); HEMOGLOBIN. 12.5 g/dL (12.0-16.0); LYMPHOCYTES % 17.2 % (20.0-50.0); MEAN CORPUSCULAR HEMOGLOBIN 23.1 pg (28.0-32.0); MEAN CORPUSCULAR VOLUME 72.8 fL (81.0-99.0); MEAN PLATELET VOLUME 9.4 fl (7.4-10.4); MONOCYTES % 11.5 % (2.0-8.0); NEUTROPHILS % 69.6 % (40.0-76.0); PLATELET 191 x1000/uL (130-400)
[2020-01-15 07:53] LABS: PHOSPHORUS 8.2 mg/dL (2.5-4.9)
[2020-01-15 08:00] VITALS: BP 148/59
[2020-01-15 12:00] VITALS: BP 138/67
[2020-01-15] MEDS: ASPIRIN 81MG EC TABLET PO SCH (13:20)
[2020-01-15] MEDS: LABETALOL HCL 300MG TABLET PO SCH (13:21)
[2020-01-15] MEDS: AMLODIPINE 10MG TABLET PO SCH (13:21)
[2020-01-15] MEDS: LOSARTAN POTASSIUM 100 MG TABLET PO SCH (13:21)
[2020-01-15] MEDS: MORPHINE SULFATE 4 MG/ML CPJ (NOT FOR IM USE) IV PRN (13:31)
[2020-01-15 14:07] VITALS: BP 138/67
[2020-01-15 16:43] VITALS: BP 150/51
== END 2020-01-15 17:40 | DRG 183 ==
LOC: ER 08:28 → MICUSO 13:39 → ENRESERV 20:21 → CANRESERV 20:21 → 7WST 01-13 01:33 → 5WST 01-13 20:10
PROVIDERS: ADMIT Internal Medicine; ATTEND Internal Medicine
PROC: 5A1D70Z Performance of Urinary Filtration, Intermittent, Less than 6 Hours Per Day (ICD-10-PCS; principal; 2020-01-14)
DX: S22.41XA Multiple fractures of ribs, right side, initial encounter for closed fracture (principal); N18.6 End stage renal disease; I12.0 Hypertensive chronic kidney disease with stage 5 chronic kidney disease or end stage renal disease; N25.81 Secondary hyperparathyroidism of renal origin; D64.9 Anemia, unspecified; E87.5 Hyperkalemia; E78.5 Hyperlipidemia, unspecified; E66.9 Obesity, unspecified; D72.829 Elevated white blood cell count, unspecified; E11.22 Type 2 diabetes mellitus with diabetic chronic kidney disease; E11.51 Type 2 diabetes mellitus with diabetic peripheral angiopathy without gangrene; E78.00 Pure hypercholesterolemia, unspecified; W05.0XXA Fall from non-moving wheelchair, initial encounter; Y93.89 Activity, other specified; Y92.89 Other specified places as the place of occurrence of the external cause; Y99.8 Other external cause status; Z79.4 Long term (current) use of insulin; Z79.899 Other long term (current) drug therapy; Z82.49 Family history of ischemic heart disease and other diseases of the circulatory system; Z89.611 Acquired absence of right leg above knee; Z83.3 Family history of diabetes mellitus; Z99.2 Dependence on renal dialysis; Z03.818 Encounter for observation for suspected exposure to other biological agents ruled out; Z79.2 Long term (current) use of antibiotics; Z71.3 Dietary counseling and surveillance; Z68.32 Body mass index [BMI] 32.0-32.9, adult
CPT/HCPCS: 36415; 71045; 74177; 80048; 80053; 82962; 83735; 84100; 85025; 86850; 86900; 87635; 93005; 97116; 97162; 99285; J0360; J0696; J1815; J2270; J2405; J2765; J7060; Q9967; U0003-CS

== ENCOUNTER 2020-08-08 16:08 | Emergency (ER) | payer OTHER, MEDICAID ==
[~2020-08-08] VITALS: Ht 170.2 cm; Wt 91.0 kg
[~2020-08-08 16:08] MED LIST changes: +HYDR-4001 MT; +LATA2.5D14 EACHEYE; -LATA2.5D2 EACHEYE
[2020-08-08 16:57] LABS: BASOPHILS % 0.5 % (0.0-2.0); EOSINOPHILS % 0.9 % (0.0-5.0); HEMATOCRIT. 36.5 % (36.0-48.0); HEMOGLOBIN. 11.4 g/dL (12.0-16.0); LYMPHOCYTES % 20.5 % (20.0-50.0); MEAN CORPUSCULAR HEMOGLOBIN 23.4 pg (28.0-32.0); MEAN CORPUSCULAR VOLUME 74.7 fL (81.0-99.0); MEAN PLATELET VOLUME 9.4 fl (7.4-10.4); MONOCYTES % 9.6 % (2.0-8.0); NEUTROPHILS % 68.5 % (40.0-76.0); PLATELET 246 x1000/uL (130-400); RED BLOOD CELL COUNT 4.89 mill/uL (4.2-5.4)
[2020-08-08 16:59] LABS: CHLORIDE 106 mEq/L (98-107)
[2020-08-08 19:50] VITALS: BP 102/54
== END 2020-08-08 20:19 | disposition home or self-care (01) ==
LOC: ER 16:08
DX: E16.2 Hypoglycemia, unspecified (principal); I13.2 Hypertensive heart and chronic kidney disease with heart failure and with stage 5 chronic kidney disease, or end stage renal disease; I50.9 Heart failure, unspecified; N18.6 End stage renal disease; Z99.2 Dependence on renal dialysis; Z79.899 Other long term (current) drug therapy
CPT/HCPCS: 36415; 80053; 82962; 85025; 93005; 99284

== ENCOUNTER 2021-01-29 00:21 | Inpatient (IN) | payer OTHER, MEDICAID ==
[~2021-01-29] VITALS: Ht 162.6 cm; Wt 81.6 kg
[~2021-01-29 00:21] MED LIST changes: -DORZ10DR9 EACHEYE; -HYDR-4001 MT; +LEVO250T58 PO; -NPH,100V11 SQ
[2021-01-29] MEDS ORDERED: VANCOMYCIN 1 G PREMIX 200 ML IV ONE (00:45)
[2021-01-29] MEDS ORDERED: LEVOFLOXACIN 750MG PREMIX 150 ML IV ONE (00:45)
[2021-01-29] MEDS ORDERED: LABETALOL 5MG/ML SYR 20 MG/4 ML SYRINGE IV ONE (00:45)
[2021-01-29] MEDS ORDERED: HYDRALAZINE 20MG/ML VIAL IV ONE (00:45)
[2021-01-29] MEDS ORDERED: MORPHINE SULFATE 4 MG/ML CPJ (NOT FOR IM USE) IV ONE (00:45)
[2021-01-29] MEDS ORDERED: ASPIRIN 81MG TABLET PO ONE (00:45)
[2021-01-29 00:50] LABS: BASOPHILS % 0.4 % (0.0-2.0); EOSINOPHILS % 0.5 % (0.0-5.0); HEMATOCRIT. 37.3 % (36.0-48.0); HEMOGLOBIN. 11.4 g/dL (12.0-16.0); LYMPHOCYTES % 10.1 % (20.0-50.0); MEAN CORPUSCULAR HEMOGLOBIN 22.5 pg (28.0-32.0); MEAN CORPUSCULAR VOLUME 73.4 fL (81.0-99.0); MEAN PLATELET VOLUME 10.1 fl (7.4-10.4); MONOCYTES % 7.5 % (2.0-8.0); NEUTROPHILS % 81.5 % (40.0-76.0); PLATELET 241 x1000/uL (130-400); RED BLOOD CELL COUNT 5.08 mill/uL (4.2-5.4); RED CELL DISTRIBUTION WIDTH 17.9 % (11.6-14.6)
[2021-01-29 00:58] LABS: CHLORIDE 97 mEq/L (98-107)
[2021-01-29] MEDS ORDERED: NITROGLYCERIN 50MG PREMIX 250 ML IV ONE (03:45)
[2021-01-29] MEDS ORDERED: ONDANSETRON HCL 4MG/2ML INJ IV PRN (10:45)
[2021-01-29] MEDS ORDERED: DOCUSATE SODIUM 100MG CAPSULE PO PRN (10:45)
[2021-01-29] MEDS ORDERED: LORAZEPAM 0.5MG TABLET PO PRN (10:45)
[2021-01-29] MEDS ORDERED: ACETAMINOPHEN 650MG SUPP PR PRN (10:45)
[2021-01-29] MEDS ORDERED: MAGNESIUM/ALUMINUM HYDROXIDE/SIMETHICONE 30ML UDC PO PRN (10:45)
[2021-01-29] MEDS ORDERED: NA PHOS,M-B/NA PHOS,DI-BA ENEMA 118ML PR PRN (10:45)
[2021-01-29] MEDS ORDERED: GUAIFENESIN 200MG/10ML SUGAR FREE UDC PO PRN (10:45)
[2021-01-29] MEDS ORDERED: ACETAMINOPHEN 325MG TABLET PO PRN (10:45)
[2021-01-29] MEDS ORDERED: IPRATROPIUM/ALBUTEROL 0.5-3(2.5)MG/3ML NEB NEB PRN (10:45)
[2021-01-29] MEDS ORDERED: DEXTROSE 50% WATER 50ML SYRINGE IV PRN (10:45)
[2021-01-29] MEDS ORDERED: DIPHENHYDRAMINE 50MG/ML VIAL IV PRN (10:45)
[2021-01-29] MEDS: AMLODIPINE 5MG TABLET PO SCH ×2 (11:51→21:49)
[2021-01-29 11:53] LABS: BG BASE EXCESS 3.1 mmol/L (-2.0-2.0); BG CARBOXYHEMOGLOBIN 0.3 % (0.5-1.5); BG DEOXYHEMOGLOBIN 0.5 % (0.0-5.0); BG FRACTION INSPIRED OXYGEN 70; BG HCO3 ACT 28.4 mmol/L (22.0-26.0); BG OXYGEN SATURATION 99.5 % (92.0-98.5); BG OXYHEMOGLOBIN 99.2 % (94.0-97.0); BG PCO2 46.1 mmHg (35.0-45.0); BG PH 7.407 (7.350-7.450); BG PO2 302.2 mmHg (75.0-100.0); BG SAMPLE SITE RIGHT RADIAL; BG TOTAL HEMOGLOBIN 11.3 g/dL (12.0-18.0); BG TOTAL RESPIRATORY RATE 24 b/min; BG VENT MODE MASK - BIPAP
[2021-01-29] MEDS: HYDRALAZINE HCL 50MG TABLET PO SCH ×2 (11:53→19:05)
[2021-01-29] MEDS ORDERED: INSULIN LISPRO 100 UNITS/ML SUBCUT SCH (12:00)
[2021-01-29] MEDS: HEPARIN 5000 UNITS/ML VIAL SUBCUT SCH ×2 (12:05→21:52)
[2021-01-29] MEDS: BLOOD SUGAR DIAGNOSTIC STRIP TEST SCH ×3 (12:06→21:40)
[2021-01-29] MEDS ORDERED: LABETALOL HCL 300MG TABLET PO SCH (14:00)
[2021-01-29] MEDS: HYDRALAZINE 20MG/ML VIAL IV PRN (14:54)
[2021-01-29 15:39] LABS: CREATINE KINASE MB FRACTION 1.6 ng/mL (0.5-3.6)
[2021-01-29] MEDS ORDERED: INSULIN GLARGINE UD 100 UNITS/ML SYR SUBCUT NR (17:00)
[2021-01-29] MEDS: INSULIN LISPRO 100 UNITS/ML SUBCUT SCH ×2 (17:38→21:00)
[2021-01-29 18:07] LABS: INR 1.1; PROTHROMBIN TIME 12.1 sec (9.6-11.0)
[2021-01-29 18:44] LABS: HEPATITIS B SURFACE ANTIGEN NEGATIVE
[2021-01-29] MEDS ORDERED: LABETALOL 5MG/ML SYR 20 MG/4 ML SYRINGE IV NR (19:00)
[2021-01-29] MEDS: LABETALOL HCL 300MG TABLET PO SCH ×2 (20:00→23:00)
[2021-01-29] MEDS: FAMOTIDINE 20MG TABLET PO SCH (21:49)
[2021-01-29] MEDS: NITROGLYCERIN OINT 1GM/INCH UDPKT TD SCH (21:49)
[2021-01-29] MEDS: METHYLPREDNISOLONE SOD SUCC 40 MG/ML VIAL IV SCH (21:50)
[2021-01-29] MEDS: HYDROCODONE/ACETAMINOPHEN 5/325MG TABLET PO PRN (23:56)
[2021-01-29 23:57] LABS: CREATINE KINASE MB FRACTION 1.2 ng/mL (0.5-3.6)
[2021-01-30] MEDS: INSULIN GLARGINE UD 100 UNITS/ML SYR SUBCUT SCH ×2 (00:58→10:58)
[2021-01-30 01:45] LABS: BG BASE EXCESS 0.5 mmol/L (-2.0-2.0); BG CARBOXYHEMOGLOBIN 0.8 % (0.5-1.5); BG DEOXYHEMOGLOBIN 1.3 % (0.0-5.0); BG FRACTION INSPIRED OXYGEN 35; BG HCO3 ACT 25.6 mmol/L (22.0-26.0); BG METHEMOGLOBIN 0.1 % (0.0-1.5); BG OXYGEN SATURATION 98.7 % (92.0-98.5); BG OXYHEMOGLOBIN 97.8 % (94.0-97.0); BG PCO2 43.3 mmHg (35.0-45.0); BG PO2 135.6 mmHg (75.0-100.0); BG SAMPLE SITE RIGHT RADIAL; BG TOTAL HEMOGLOBIN 12.1 g/dL (12.0-18.0); BG VENT MODE NASAL CANNULA
[2021-01-30] MEDS: HYDRALAZINE HCL 50MG TABLET PO SCH ×3 (02:00→19:00)
[2021-01-30] MEDS: IPRATROPIUM/ALBUTEROL 0.5-3(2.5)MG/3ML NEB HHN SCH ×4 (04:25→19:38)
[2021-01-30 05:52] LABS: HEMATOCRIT. 34.9 % (36.0-48.0); HEMOGLOBIN. 11.2 g/dL (12.0-16.0); MEAN CORPUSCULAR HEMOGLOBIN 23.4 pg (28.0-32.0); MEAN CORPUSCULAR VOLUME 72.8 fL (81.0-99.0); PLATELET 251 x1000/uL (130-400); RED BLOOD CELL COUNT 4.79 mill/uL (4.2-5.4); RED CELL DISTRIBUTION WIDTH 17.5 % (11.6-14.6)
[2021-01-30 05:57] LABS: CHLORIDE 103 mEq/L (98-107)
[2021-01-30] MEDS: LABETALOL HCL 300MG TABLET PO SCH ×2 (06:00→14:00)
[2021-01-30 06:04] LABS: PHOSPHORUS 5.3 mg/dL (2.5-4.9)
[2021-01-30 06:05] LABS: HDL CHOLESTEROL 59 mg/dL (40-59); LDL CHOLESTEROL 93 mg/dL (5-100)
[2021-01-30 06:06] LABS: T4 FREE 1.22 ng/dL (0.76-1.46)
[2021-01-30] MEDS: BLOOD SUGAR DIAGNOSTIC STRIP TEST SCH ×4 (06:58→21:00)
[2021-01-30] MEDS: NITROGLYCERIN OINT 1GM/INCH UDPKT TD SCH ×3 (07:04→23:14)
[2021-01-30] MEDS: METHYLPREDNISOLONE SOD SUCC 40 MG/ML VIAL IV SCH ×2 (07:04→20:21)
[2021-01-30] MEDS: INSULIN LISPRO 100 UNITS/ML SUBCUT SCH ×4 (07:18→23:15)
[2021-01-30] MEDS: AMLODIPINE 5MG TABLET PO SCH ×2 (09:26→22:59)
[2021-01-30] MEDS: ASPIRIN 81MG EC TABLET PO SCH (09:26)
[2021-01-30] MEDS: HEPARIN 5000 UNITS/ML VIAL SUBCUT SCH ×2 (10:17→23:14)
[2021-01-30] MEDS ORDERED: SODIUM POLYSTYRENE SULFONATE 15 G/60 ML BOT PO NR (10:45)
[2021-01-30] MEDS ORDERED: SODIUM POLYSTYRENE SULFONATE 15 G/60 ML BOT PO ONE (11:00)
[2021-01-30] MEDS ORDERED: IOHEXOL-350 100 ML BOTTLE ONE (12:13)
[2021-01-30 12:42] LABS: PLATELET ESTIMATE NORMAL
[2021-01-30 17:15] LABS: CREATINE KINASE 69 IU/L (26-192)
[2021-01-30 17:17] LABS: CREATINE KINASE MB FRACTION < 1.0 ng/mL (0.5-3.6)
[2021-01-30] MEDS ORDERED: NALOXONE HCL 0.4MG/ML VIAL IV PRN (18:15)
[2021-01-30] MEDS ORDERED: INSULIN LISPRO 100 UNITS/ML SUBCUT NR (19:15)
[2021-01-30 22:20] VITALS: BP 117/61
[2021-01-30 22:30] VITALS: BP 117/61
[2021-01-30] MEDS: FAMOTIDINE 20MG TABLET PO SCH (22:59)
[2021-01-31] VITALS (12 sets, daily range): BP systolic 120–187; BP diastolic 52–91
[2021-01-31] MEDS: LABETALOL HCL 300MG TABLET PO SCH ×4 (00:56→22:00)
[2021-01-31] MEDS: INSULIN GLARGINE UD 100 UNITS/ML SYR SUBCUT SCH ×3 (00:57→22:00)
[2021-01-31] MEDS ORDERED: LEVOFLOXACIN 500MG PREMIX 100 ML IV SCH (01:00)
[2021-01-31] MEDS: IPRATROPIUM/ALBUTEROL 0.5-3(2.5)MG/3ML NEB HHN SCH ×3 (01:05→21:04)
[2021-01-31] MEDS: HYDRALAZINE HCL 50MG TABLET PO SCH ×3 (02:23→17:55)
[2021-01-31 06:14] LABS: PHOSPHORUS 6.7 mg/dL (2.5-4.9)
[2021-01-31 06:16] LABS: HEMATOCRIT. 34.9 % (36.0-48.0); HEMOGLOBIN. 10.8 g/dL (12.0-16.0); MEAN CORPUSCULAR HEMOGLOBIN 22.8 pg (28.0-32.0); PLATELET 195 x1000/uL (130-400); RED BLOOD CELL COUNT 4.72 mill/uL (4.2-5.4); RED CELL DISTRIBUTION WIDTH 17.7 % (11.6-14.6)
[2021-01-31] MEDS: METHYLPREDNISOLONE SOD SUCC 40 MG/ML VIAL IV SCH (06:28)
[2021-01-31] MEDS: NITROGLYCERIN OINT 1GM/INCH UDPKT TD SCH ×3 (06:29→22:00)
[2021-01-31] MEDS: BLOOD SUGAR DIAGNOSTIC STRIP TEST SCH ×4 (07:30→20:50)
[2021-01-31] MEDS: AMLODIPINE 5MG TABLET PO SCH ×2 (08:53→20:47)
[2021-01-31] MEDS: ASPIRIN 81MG EC TABLET PO SCH (08:53)
[2021-01-31] MEDS: INSULIN LISPRO 100 UNITS/ML SUBCUT SCH ×4 (08:54→20:58)
[2021-01-31] MEDS: HEPARIN 5000 UNITS/ML VIAL SUBCUT SCH ×2 (09:55→20:58)
[2021-01-31] MEDS ORDERED: INSULIN GLARGINE UD 100 UNITS/ML SYR SUBCUT NR (10:30)
[2021-01-31] MEDS ORDERED: INSULIN LISPRO 100 UNITS/ML SUBCUT SCH (13:45)
[2021-01-31 15:33] LABS: BG BASE EXCESS -1.1 mmol/L (-2.0-2.0); BG CARBOXYHEMOGLOBIN 0.2 % (0.5-1.5); BG DEOXYHEMOGLOBIN 5.4 % (0.0-5.0); BG FRACTION INSPIRED OXYGEN 21; BG HCO3 ACT 24.6 mmol/L (22.0-26.0); BG METHEMOGLOBIN 0.3 % (0.0-1.5); BG OXYGEN SATURATION 94.6 % (92.0-98.5); BG OXYHEMOGLOBIN 94.1 % (94.0-97.0); BG PCO2 44.8 mmHg (35.0-45.0); BG PH 7.357 (7.350-7.450); BG PO2 79.3 mmHg (75.0-100.0); BG SAMPLE SITE RIGHT BRACHIAL; BG TOTAL HEMOGLOBIN 11.2 g/dL (12.0-18.0); BG VENT MODE ROOM AIR
[2021-01-31 16:52] LABS: PLATELET ESTIMATE NORMAL
[2021-01-31] MEDS: HYDROCODONE/ACETAMINOPHEN 5/325MG TABLET PO PRN (20:49)
[2021-01-31] MEDS: FAMOTIDINE 20MG TABLET PO SCH (20:50)
[2021-02-01] VITALS (10 sets, daily range): BP systolic 129–165; BP diastolic 47–79
[2021-02-01] MEDS: IPRATROPIUM/ALBUTEROL 0.5-3(2.5)MG/3ML NEB HHN SCH ×2 (01:11→10:38)
[2021-02-01] MEDS: HYDRALAZINE HCL 50MG TABLET PO SCH ×2 (02:53→09:40)
[2021-02-01] MEDS: LABETALOL HCL 300MG TABLET PO SCH ×2 (05:21→14:33)
[2021-02-01] MEDS: NITROGLYCERIN OINT 1GM/INCH UDPKT TD SCH ×2 (05:22→14:33)
[2021-02-01 05:33] LABS: PHOSPHORUS 5.3 mg/dL (2.5-4.9)
[2021-02-01 06:17] LABS: BASOPHILS % 0.1 % (0.0-2.0); HEMATOCRIT. 34.5 % (36.0-48.0); HEMOGLOBIN. 10.8 g/dL (12.0-16.0); LYMPHOCYTES % 16.7 % (20.0-50.0); MEAN CORPUSCULAR HEMOGLOBIN 22.5 pg (28.0-32.0); MEAN CORPUSCULAR VOLUME 72.3 fL (81.0-99.0); MONOCYTES % 6.3 % (2.0-8.0); NEUTROPHILS % 76.9 % (40.0-76.0); PLATELET 202 x1000/uL (130-400); RED BLOOD CELL COUNT 4.77 mill/uL (4.2-5.4); RED CELL DISTRIBUTION WIDTH 17.2 % (11.6-14.6)
[2021-02-01] MEDS: BLOOD SUGAR DIAGNOSTIC STRIP TEST SCH ×2 (07:30→12:03)
[2021-02-01] MEDS: INSULIN LISPRO 100 UNITS/ML SUBCUT SCH ×2 (08:00→12:03)
[2021-02-01] MEDS ORDERED: METHYLPREDNISOLONE SOD SUCC 40 MG/ML VIAL IV SCH (09:00)
[2021-02-01] MEDS: ASPIRIN 81MG EC TABLET PO SCH (09:31)
[2021-02-01] MEDS: AMLODIPINE 5MG TABLET PO SCH (09:32)
[2021-02-01] MEDS: HEPARIN 5000 UNITS/ML VIAL SUBCUT SCH (09:32)
[2021-02-01] MEDS: HYDRALAZINE 20MG/ML VIAL IV PRN (09:33)
[2021-02-01] MEDS: INSULIN GLARGINE UD 100 UNITS/ML SYR SUBCUT SCH (09:41)
[2021-02-01] MEDS ORDERED: LOSARTAN POTASSIUM 50 MG TABLET PO SCH (11:15)
[2021-02-01] MEDS ORDERED: MAGNESIUM HYDROXIDE 400MG/5ML 30ML UDC PO NR (12:00)
[2021-02-01] MEDS ORDERED: AMLO10TA80 MT (15:36)
[2021-02-01] MEDS ORDERED: LOSA50TA3 MT (15:36)
[2021-02-01] MEDS ORDERED: P20 PO (15:36)
[2021-02-01] MEDS ORDERED: ASPI-1497 MT (15:36)
[2021-02-01] MEDS ORDERED: [UNRECOGNIZED DRUG - CODE] PO (15:36)
[2021-02-01] MEDS ORDERED: HYDR-4135 MT (15:36)
[2021-02-01] MEDS ORDERED: LEVO250T58 MT (15:36)
[2021-02-01] MEDS ORDERED: LIP40 PO (15:36)
[2021-02-01] MEDS ORDERED: IPRA3AMP9 NEB (15:36)
== END 2021-02-01 17:00 | disposition home or self-care (01) | DRG 193 ==
LOC: ER 00:21 → MICUSO 01:44 → 3WST 17:52 → ENRESERV 17:53 → MICUSO 18:26 → 5EST 01-30 20:44
PROVIDERS: ADMIT Internal Medicine; ATTEND Internal Medicine
PROC: 5A09357 Assistance with Respiratory Ventilation, Less than 24 Consecutive Hours, Continuous Positive Airway Pressure (ICD-10-PCS; principal; 2021-01-29)
DX: J18.9 Pneumonia, unspecified organism (principal); J96.01 Acute respiratory failure with hypoxia; N18.6 End stage renal disease; I50.33 Acute on chronic diastolic (congestive) heart failure; E87.1 Hypo-osmolality and hyponatremia; I13.2 Hypertensive heart and chronic kidney disease with heart failure and with stage 5 chronic kidney disease, or end stage renal disease; I16.1 Hypertensive emergency; N25.81 Secondary hyperparathyroidism of renal origin; D64.9 Anemia, unspecified; E11.22 Type 2 diabetes mellitus with diabetic chronic kidney disease; E11.65 Type 2 diabetes mellitus with hyperglycemia; R91.8 Other nonspecific abnormal finding of lung field; E11.51 Type 2 diabetes mellitus with diabetic peripheral angiopathy without gangrene; Z82.49 Family history of ischemic heart disease and other diseases of the circulatory system; Z83.3 Family history of diabetes mellitus; Z89.611 Acquired absence of right leg above knee; Z99.2 Dependence on renal dialysis; Z87.891 Personal history of nicotine dependence; Z79.899 Other long term (current) drug therapy; Z20.822 Contact with and (suspected) exposure to COVID-19
CPT/HCPCS: 36415; 36600; 71045; 71275; 74176; 80048; 80053; 80061; 82375; 82550; 82553; 82805; 82962; 83036; 83605; 83735; 83880; 84100; 84132; 84439; 84443; 84484; 85025; 86705; 86709; 86803; 87340; 87426; 93005; 93306; 93970; 94640; 94660; 97162; 99285; J0360; J1644; J1815; J1956; J2270; J2920; J3370; J3490; Q9967

== ENCOUNTER 2021-02-27 09:50 | Inpatient (IN) | payer OTHER, MEDICAID ==
[2021-02-27] VITALS (28 sets, daily range): BP systolic 127–220; BP diastolic 73–141
[~2021-02-27] VITALS: Ht 167.6 cm; Wt 72.1 kg
[~2021-02-27 09:50] MED LIST changes: +AMLO10TA80 MT; +ASPI-1497 MT; -DILT360C39 PO; +HYDR-4135 MT; +IPRA3AMP9 NEB; +LEVO250T58 MT; -LEVO250T58 PO; -LOSA100T3 PO; +LOSA50TA3 MT; +P20 PO
[2021-02-27] MEDS ORDERED: CEFTRIAXONE 2 G PREMIX 50 ML IV ONE (10:00)
[2021-02-27] MEDS ORDERED: AZITHROMYCIN 500 MG in DEXT 5% WATER 250 ML IV SCH (10:00)
[2021-02-27] MEDS ORDERED: MORPHINE SULFATE 4 MG/ML CPJ (NOT FOR IM USE) IV ONE (10:00)
[2021-02-27] MEDS ORDERED: NITROGLYCERIN 50MG PREMIX 250 ML IV ONE (10:30)
[2021-02-27 10:39] LABS: BASOPHILS % 0.6 % (0.0-2.0); EOSINOPHILS % 1.2 % (0.0-5.0); HEMATOCRIT. 31.5 % (36.0-48.0); HEMOGLOBIN. 9.8 g/dL (12.0-16.0); LYMPHOCYTES % 7.8 % (20.0-50.0); MEAN CORPUSCULAR HEMOGLOBIN 22.9 pg (28.0-32.0); MONOCYTES % 8.2 % (2.0-8.0); NEUTROPHILS % 82.2 % (40.0-76.0); PLATELET 213 x1000/uL (130-400); RED BLOOD CELL COUNT 4.26 mill/uL (4.2-5.4); RED CELL DISTRIBUTION WIDTH 17.4 % (11.6-14.6)
[2021-02-27 10:43] LABS: CHLORIDE 99 mEq/L (98-107)
[2021-02-27] MEDS ORDERED: AZITHROMYCIN 500MG/250ML 250 ML IV SCH (10:45)
[2021-02-27] MEDS ORDERED: MORPHINE SULFATE 2 MG/ML CPJ (NOT FOR IM USE) IV NR (10:45)
[2021-02-27] MEDS ORDERED: INSULIN REGULAR (HUMULIN R) 300UNITS/3ML VIAL SUBCUT ONE (12:30)
[2021-02-27] MEDS ORDERED: IPRATROPIUM/ALBUTEROL 0.5-3(2.5)MG/3ML NEB HHN PRN (17:15)
[2021-02-27] MEDS ORDERED: ONDANSETRON HCL 4MG/2ML INJ IV PRN (17:15)
[2021-02-27] MEDS ORDERED: FUROSEMIDE 40MG/4ML VIAL IVP NR (17:30)
[2021-02-27] MEDS: HYDROCODONE/ACETAMINOPHEN 5/325MG TABLET PO PRN (18:01)
[2021-02-27] MEDS ORDERED: DEXTROSE 50% WATER 50ML SYRINGE IV PRN (19:15)
[2021-02-27] MEDS: LOSARTAN POTASSIUM 100 MG TABLET PO SCH (19:23)
[2021-02-27] MEDS ORDERED: HYDRALAZINE 20MG/ML VIAL IV PRN (19:30)
[2021-02-27 19:52] LABS: HEPATITIS B SURFACE ANTIGEN NEGATIVE
[2021-02-27] MEDS ORDERED: INSULIN GLARGINE UD 100 UNITS/ML SYR SUBCUT NR (20:00)
[2021-02-27] MEDS: ATORVASTATIN CALCIUM 40MG TABLET PO SCH (21:12)
[2021-02-27] MEDS: EPOETIN ALFA-EPBX 4,000 UNIT/ML VIAL SUBCUT SCH (21:13)
[2021-02-27] MEDS: BLOOD SUGAR DIAGNOSTIC STRIP TEST SCH (21:13)
[2021-02-27] MEDS: LEVOFLOXACIN 500MG PREMIX 100 ML IV SCH (21:13)
[2021-02-27] MEDS: INSULIN LISPRO 100 UNITS/ML SUBCUT SCH (21:14)
[2021-02-27] MEDS: LABETALOL HCL 300MG TABLET PO SCH (21:15)
[2021-02-28] VITALS (27 sets, daily range): BP systolic 122–169; BP diastolic 36–87
[2021-02-28 06:02] LABS: BASOPHILS % 0.4 % (0.0-2.0); EOSINOPHILS % 0.7 % (0.0-5.0); HEMATOCRIT. 28.5 % (36.0-48.0); HEMOGLOBIN. 9.1 g/dL (12.0-16.0); LYMPHOCYTES % 9.7 % (20.0-50.0); MEAN CORPUSCULAR HEMOGLOBIN 23.1 pg (28.0-32.0); MEAN CORPUSCULAR VOLUME 72.3 fL (81.0-99.0); MEAN PLATELET VOLUME 10.1 fl (7.4-10.4); MONOCYTES % 12.2 % (2.0-8.0); PLATELET 219 x1000/uL (130-400); RED BLOOD CELL COUNT 3.94 mill/uL (4.2-5.4); RED CELL DISTRIBUTION WIDTH 17.2 % (11.6-14.6)
[2021-02-28 06:16] LABS: PHOSPHORUS 3.7 mg/dL (2.5-4.9)
[2021-02-28] MEDS: BLOOD SUGAR DIAGNOSTIC STRIP TEST SCH ×3 (07:50→21:00)
[2021-02-28] MEDS: INSULIN LISPRO 100 UNITS/ML SUBCUT SCH ×4 (08:20→21:44)
[2021-02-28] MEDS: LOSARTAN POTASSIUM 100 MG TABLET PO SCH (08:53)
[2021-02-28] MEDS: LABETALOL HCL 300MG TABLET PO SCH ×2 (08:54→22:29)
[2021-02-28 09:32] LABS: BG BASE EXCESS 2.2 mmol/L (-2.0-2.0); BG CARBOXYHEMOGLOBIN 1.1 % (0.5-1.5); BG DEOXYHEMOGLOBIN 3.1 % (0.0-5.0); BG FRACTION INSPIRED OXYGEN 36; BG HCO3 ACT 26.6 mmol/L (22.0-26.0); BG METHEMOGLOBIN 0.1 % (0.0-1.5); BG OXYGEN SATURATION 96.9 % (92.0-98.5); BG OXYHEMOGLOBIN 95.7 % (94.0-97.0); BG PCO2 40.6 mmHg (35.0-45.0); BG PH 7.434 (7.350-7.450); BG PO2 88.5 mmHg (75.0-100.0); BG SAMPLE SITE RIGHT RADIAL; BG TOTAL HEMOGLOBIN 9.5 g/dL (12.0-18.0); BG VENT MODE NASAL CANNULA
[2021-02-28] MEDS ORDERED: IPRATROPIUM/ALBUTEROL 0.5-3(2.5)MG/3ML NEB HHN PRN (13:45)
[2021-02-28] MEDS ORDERED: BISACODYL 10MG SUPP PR PRN (13:45)
[2021-02-28] MEDS ORDERED: ACETAMINOPHEN 650MG SUPP PR PRN (13:45)
[2021-02-28] MEDS ORDERED: HYDRALAZINE 20MG/ML VIAL IV PRN (13:45)
[2021-02-28] MEDS ORDERED: ACETAMINOPHEN 325MG TABLET PO PRN (13:45)
[2021-02-28 13:59] LABS: BG BASE EXCESS 0.7 mmol/L (-2.0-2.0); BG CARBOXYHEMOGLOBIN 0.5 % (0.5-1.5); BG DEOXYHEMOGLOBIN 5.6 % (0.0-5.0); BG HCO3 ACT 25.4 mmol/L (22.0-26.0); BG METHEMOGLOBIN 0.2 % (0.0-1.5); BG OXYGEN SATURATION 94.4 % (92.0-98.5); BG OXYHEMOGLOBIN 93.7 % (94.0-97.0); BG PCO2 41.3 mmHg (35.0-45.0); BG PH 7.407 (7.350-7.450); BG SAMPLE SITE RIGHT BRACHIAL; BG VENT MODE ROOM AIR
[2021-02-28 14:40] LABS: INR 1.2; PROTHROMBIN TIME 12.3 sec (9.6-11.0)
[2021-02-28] MEDS ORDERED: NALOXONE HCL 0.4MG/ML VIAL IV PRN (15:45)
[2021-02-28] MEDS: ATORVASTATIN CALCIUM 40MG TABLET PO SCH (21:43)
[2021-03-01] VITALS (12 sets, daily range): BP systolic 140–176; BP diastolic 58–77
[2021-03-01 00:08] LABS: HEPATITIS B SURFACE ANTIGEN NEGATIVE
[2021-03-01] MEDS: BLOOD SUGAR DIAGNOSTIC STRIP TEST SCH ×4 (06:28→20:55)
[2021-03-01 06:47] LABS: BASOPHILS % 0.4 % (0.0-2.0); EOSINOPHILS % 1.4 % (0.0-5.0); HEMATOCRIT. 28.4 % (36.0-48.0); HEMOGLOBIN. 8.9 g/dL (12.0-16.0); LYMPHOCYTES % 18.3 % (20.0-50.0); MEAN CORPUSCULAR HEMOGLOBIN 22.7 pg (28.0-32.0); MEAN PLATELET VOLUME 10.2 fl (7.4-10.4); MONOCYTES % 13.8 % (2.0-8.0); NEUTROPHILS % 66.1 % (40.0-76.0); PLATELET 222 x1000/uL (130-400); RED CELL DISTRIBUTION WIDTH 17.4 % (11.6-14.6)
[2021-03-01 07:10] LABS: PHOSPHORUS 5.7 mg/dL (2.5-4.9)
[2021-03-01] MEDS: INSULIN LISPRO 100 UNITS/ML SUBCUT SCH ×4 (07:20→22:09)
[2021-03-01] MEDS: LOSARTAN POTASSIUM 100 MG TABLET PO SCH (09:21)
[2021-03-01] MEDS: AMLODIPINE 5MG TABLET PO SCH (09:22)
[2021-03-01] MEDS: LABETALOL HCL 300MG TABLET PO SCH ×2 (09:22→22:08)
[2021-03-01] MEDS ORDERED: NITROGLYCERIN 50MCG/ML 10ML VIAL (CATH LAB) IV ONE (10:11)
[2021-03-01] MEDS ORDERED: NICARDIPINE 100MCG/ML 10ML VIAL (CATH LAB) IV ONE (10:11)
[2021-03-01] MEDS ORDERED: LIDOCAINE HCL 1% 20ML VIAL (Pyxis) INJ ONE (10:27)
[2021-03-01] MEDS ORDERED: IODIXANOL 320MG/ML 100 ML BOTTLE IV ONE (10:27)
[2021-03-01] MEDS ORDERED: MIDAZOLAM HCL 2 MG/2 ML VIAL ONE (10:34)
[2021-03-01] MEDS ORDERED: FENTANYL CITRATE/PF 50MCG/ML 2ML VIAL ONE (10:34)
[2021-03-01] MEDS ORDERED: ACETAMINOPHEN 325MG TABLET PO PRN ×2 (11:30)
[2021-03-01] MEDS ORDERED: ATROPINE SULFATE 1MG/10ML SYR IV PRN ×2 (11:30)
[2021-03-01] MEDS ORDERED: MORPHINE SULFATE 2 MG/ML CPJ (NOT FOR IM USE) IV SCH (12:45)
[2021-03-01] MEDS: SEVELAMER CARBONATE 800 MG TABLET PO SCH ×2 (12:59→18:10)
[2021-03-01] MEDS: HYDROCODONE/ACETAMINOPHEN 5/325MG TABLET PO PRN (20:57)
[2021-03-01] MEDS: LEVOFLOXACIN 500MG PREMIX 100 ML IV SCH (22:07)
[2021-03-01] MEDS: ATORVASTATIN CALCIUM 40MG TABLET PO SCH (22:07)
[2021-03-01] MEDS: EPOETIN ALFA-EPBX 4,000 UNIT/ML VIAL SUBCUT SCH (22:08)
[2021-03-02] VITALS (7 sets, daily range): BP systolic 125–159; BP diastolic 53–73
[2021-03-02] MEDS: HYDROCODONE/ACETAMINOPHEN 5/325MG TABLET PO PRN ×2 (05:44→10:04)
[2021-03-02 06:47] LABS: HEMOGLOBIN. 8.7 g/dL (12.0-16.0); MEAN CORPUSCULAR HEMOGLOBIN 22.6 pg (28.0-32.0); MEAN CORPUSCULAR VOLUME 72.9 fL (81.0-99.0); MEAN PLATELET VOLUME 9.7 fl (7.4-10.4); PLATELET 240 x1000/uL (130-400); RED BLOOD CELL COUNT 3.84 mill/uL (4.2-5.4); RED CELL DISTRIBUTION WIDTH 17.3 % (11.6-14.6)
[2021-03-02] MEDS: BLOOD SUGAR DIAGNOSTIC STRIP TEST SCH ×2 (06:50→11:50)
[2021-03-02 06:57] LABS: PHOSPHORUS 5.2 mg/dL (2.5-4.9)
[2021-03-02] MEDS: INSULIN LISPRO 100 UNITS/ML SUBCUT SCH ×2 (07:20→13:02)
[2021-03-02] MEDS: AMLODIPINE 5MG TABLET PO SCH (07:57)
[2021-03-02] MEDS: SEVELAMER CARBONATE 800 MG TABLET PO SCH ×2 (07:57→13:05)
[2021-03-02] MEDS: LOSARTAN POTASSIUM 100 MG TABLET PO SCH (07:57)
[2021-03-02] MEDS: LABETALOL HCL 300MG TABLET PO SCH (07:57)
[2021-03-02 10:46] LABS: PLATELET ESTIMATE NORMAL
[2021-03-03] MEDS ORDERED: LEVOFLOXACIN 500MG TABLET PO SCH (11:00)
== END 2021-03-02 16:25 | disposition home or self-care (01) | DRG 286 ==
LOC: ER 09:50 → CVICU 11:41 → ENRESERV 15:04 → CANRESERV 15:04 → 3WST 02-28 11:58
PROVIDERS: ADMIT Internal Medicine; ATTEND Internal Medicine
PROC: 5A09357 Assistance with Respiratory Ventilation, Less than 24 Consecutive Hours, Continuous Positive Airway Pressure (ICD-10-PCS; principal; 2021-02-27)
PROC: 5A1D70Z Performance of Urinary Filtration, Intermittent, Less than 6 Hours Per Day (ICD-10-PCS; 2021-02-27)
PROC: 4A023N7 Measurement of Cardiac Sampling and Pressure, Left Heart, Percutaneous Approach (ICD-10-PCS; 2021-03-01)
PROC: B215YZZ Fluoroscopy of Left Heart using Other Contrast (ICD-10-PCS; 2021-03-01)
PROC: 5A1D70Z Performance of Urinary Filtration, Intermittent, Less than 6 Hours Per Day (ICD-10-PCS; 2021-03-01)
PROC: B211YZZ Fluoroscopy of Multiple Coronary Arteries using Other Contrast (ICD-10-PCS; 2021-03-01)
DX: I13.2 Hypertensive heart and chronic kidney disease with heart failure and with stage 5 chronic kidney disease, or end stage renal disease (principal); J96.00 Acute respiratory failure, unspecified whether with hypoxia or hypercapnia; I50.33 Acute on chronic diastolic (congestive) heart failure; N18.6 End stage renal disease; J18.9 Pneumonia, unspecified organism; N25.81 Secondary hyperparathyroidism of renal origin; J44.0 Chronic obstructive pulmonary disease with (acute) lower respiratory infection; D64.9 Anemia, unspecified; E11.22 Type 2 diabetes mellitus with diabetic chronic kidney disease; E11.51 Type 2 diabetes mellitus with diabetic peripheral angiopathy without gangrene; E11.65 Type 2 diabetes mellitus with hyperglycemia; E78.5 Hyperlipidemia, unspecified; I16.0 Hypertensive urgency; E66.9 Obesity, unspecified; Z20.822 Contact with and (suspected) exposure to COVID-19; L65.9 Nonscarring hair loss, unspecified; I50.810 Right heart failure, unspecified; R91.1 Solitary pulmonary nodule; I70.90 Unspecified atherosclerosis; I25.10 Atherosclerotic heart disease of native coronary artery without angina pectoris; G47.33 Obstructive sleep apnea (adult) (pediatric); Z87.891 Personal history of nicotine dependence; Z88.8 Allergy status to other drugs, medicaments and biological substances; Z89.611 Acquired absence of right leg above knee; Z99.2 Dependence on renal dialysis; Z79.899 Other long term (current) drug therapy; Z79.2 Long term (current) use of antibiotics; Z79.82 Long term (current) use of aspirin; Z79.4 Long term (current) use of insulin; Z68.25 Body mass index [BMI] 25.0-25.9, adult; Z82.49 Family history of ischemic heart disease and other diseases of the circulatory system
CPT/HCPCS: 36415; 36600; 71045; 80048; 80053; 82375; 82805; 82962; 83036; 83735; 83880; 84100; 84484; 85025; 86705; 86709; 86803; 87340; 87426; 93005; 93458; 94660; 97162; 99291; C1760; C1769; C1887; C1893; J0360; J0456; J0696; J0885; J1644; J1815; J1940; J1956; J2250; J2270; J2405; J3010; J3490; J7060; Q9967

== ENCOUNTER 2021-03-16 12:47 | Emergency (ER) | payer OTHER, MEDICAID ==
[~2021-03-16] VITALS: Ht 165.1 cm; Wt 82.0 kg
[2021-03-16 14:28] LABS: HEMATOCRIT. 29.6 % (36.0-48.0); HEMOGLOBIN. 9.1 g/dL (12.0-16.0); MEAN CORPUSCULAR HEMOGLOBIN 22.5 pg (28.0-32.0); MEAN CORPUSCULAR VOLUME 72.8 fL (81.0-99.0); MEAN PLATELET VOLUME 10.1 fl (7.4-10.4); PLATELET 223 x1000/uL (130-400); RED BLOOD CELL COUNT 4.07 mill/uL (4.2-5.4); RED CELL DISTRIBUTION WIDTH 17.6 % (11.6-14.6)
[2021-03-16 14:36] LABS: CHLORIDE 99 mEq/L (98-107)
[2021-03-16 14:46] LABS: PLATELET ESTIMATE NORMAL
[2021-03-16 18:21] VITALS: BP 133/72
== END 2021-03-16 18:24 | disposition home or self-care (01) ==
LOC: ER 12:47
DX: T76.11XA Adult physical abuse, suspected, initial encounter (principal); R52 Pain, unspecified; R45.7 State of emotional shock and stress, unspecified; E11.65 Type 2 diabetes mellitus with hyperglycemia; Y07.499 Other family member, perpetrator of maltreatment and neglect; Y04.2XXA Assault by strike against or bumped into by another person, initial encounter; Y93.89 Activity, other specified; Y92.89 Other specified places as the place of occurrence of the external cause; I13.2 Hypertensive heart and chronic kidney disease with heart failure and with stage 5 chronic kidney disease, or end stage renal disease; I50.9 Heart failure, unspecified; E11.22 Type 2 diabetes mellitus with diabetic chronic kidney disease; N18.6 End stage renal disease; D64.9 Anemia, unspecified; Z99.2 Dependence on renal dialysis; Z79.4 Long term (current) use of insulin; Z79.84 Long term (current) use of oral hypoglycemic drugs; Z89.611 Acquired absence of right leg above knee
CPT/HCPCS: 36415; 71045; 80053; 83880; 84484; 85025; 93005; 99285